=== PATIENT | male | born 1960 | race African-American/Black ===

== ENCOUNTER 2025-04-19 18:14 | Inpatient (IN) | payer OTHER ==
[2025-04-19 18:37] VITALS: BMI 20.7
[2025-04-19] MEDS ORDERED: LOPERAMIDE HCL 2 MG CAPSULE PO PRN (20:05)
[2025-04-19] MEDS ORDERED: MAGNESIUM HYDROX 2400MG/30ML ORAL SUSPENSION 30 ML CUP PO PRN (20:05)
[2025-04-19] MEDS ORDERED: BISMUTH SUBSALICYLATE 524 MG/30 ML PO PRN (20:05)
[2025-04-19] MEDS ORDERED: MAG HYDROX/AL HYDROX/SIMETH 30 ML UNIT-DOSE CUP PO PRN (20:05)
[2025-04-19] MEDS ORDERED: ACETAMINOPHEN 325 MG TABLET (FP) PO PRN (20:05)
[2025-04-19] MEDS ORDERED: NICOTINE POLACRILEX 4 MG GUM BUC PRN (20:05)
[2025-04-19] MEDS ORDERED: guaiFENesin 600 MG TABLET.ER (FP) PO PRN (20:05)
[2025-04-19] MEDS ORDERED: IBUPROFEN 400 MG TABLET (FP) PO PRN (20:05)
[2025-04-19] MEDS ORDERED: ONDANSETRON *ODT* 4 MG TABLET SL PRN (20:05)
[2025-04-19] MEDS ORDERED: NALOXONE (NARCAN) HCL 4 MG/0.1 ML SPRAY NS PRN (20:05)
[2025-04-19] MEDS ORDERED: BENZOCAINE/MENTHOL (CHLORASEPTIC ) LOZENGE MM PRN (20:05)
[2025-04-19] MEDS ORDERED: BENZONATATE 200 MG CAPSULE PO PRN (20:05)
[2025-04-19] MEDS ORDERED: DICYCLOMINE HCL 10 MG CAPSULE PO PRN (20:05)
[2025-04-19] MEDS ORDERED: chlordiazePOXIDE HCL 25 MG CAPSULE PO PRN (20:05)
[2025-04-19] MEDS: THIAMINE 100 MG TABLET PO SCH (22:24)
[2025-04-19] MEDS: MELATONIN 5 MG TABLETS PO SCH (22:24)
[2025-04-19] MEDS: levETIRAcetam 500 MG TABLET (FP) PO SCH (22:24)
[2025-04-19] MEDS: chlordiazePOXIDE HCL 25 MG CAPSULE PO SCH (22:24)
[2025-04-19] MEDS: IBUPROFEN 600 MG TABLET (FP) PO PRN (22:26)
[2025-04-20] MEDS: PRENATAL VITAMINS W/ FOLIC ACID TABLET (FP) PO SCH (10:06)
[2025-04-20] MEDS: NICOTINE 14 MG/24 HOURS TOPICAL PATCH TD SCH (10:07)
[2025-04-20] MEDS: LISINOPRIL 5 MG TABLET PO SCH (10:08)
[2025-04-20 11:01] LABS: CHLORIDE 108 mmol/L (98-107); POTASSIUM 3.5 mmol/L (3.5-5.1); SODIUM 144 mmol/L (136-145)
[2025-04-20 11:03] LABS: HEMATOCRIT 32.5 % (40.1-51.0); HEMOGLOBIN 10.8 g/dL (13.7-17.5); MCHC 33.2 g/dl (32.3-36.5); MEAN CELL VOLUME 110.2 fl (79.0-92.2); MEAN PLT VOLUME 10.9 fl (9.4-12.4); PLATELET COUNT 178 x10^3/uL (163-337)
[2025-04-20 11:04] LABS: ALBUMIN 3.4 g/dl (3.4-5.0); ANION GAP 5 mmol/L (4-13); CO2 30 mmol/L (21-32)
[2025-04-20 11:06] LABS: CALCIUM 9.7 mg/dL (8.5-10.1)
[2025-04-20 11:07] LABS: BLOOD UREA NITROGEN 14.6 mg/dL (7-18)
[2025-04-20 11:10] LABS: CREATININE 0.8 mg/dL (0.55-1.3); SGOT/AST 46 U/L (15-37); SGPT/ALT 29 U/L (13-61)
[2025-04-20 11:11] LABS: BILIRUBIN,TOTAL 0.5 mg/dL (0.2-1)
[2025-04-20 11:12] LABS: ALK PHOS 95 U/L (45-117)
[2025-04-20 12:00] LABS: GLUCOSE,RANDOM 123 mg/dL (74-106); TOT PROT 6.4 g/dl (6.4-8.2)
[2025-04-20] MEDS: methaDONE HCL 10 MG TABLET PO ONE (13:51)
[2025-04-20] MEDS: POLYETHYLENE GLYCOL (HEALTHYLAX) 3350 17 GM PACKET PO PRN (17:21)
[2025-04-20] MEDS: SUVOREXANT 10 MG TABLET PO PRN (22:33)
[2025-04-21] MEDS: chlordiazePOXIDE HCL 25 MG CAPSULE PO SCH (05:48)
[2025-04-22] MEDS ORDERED: chlordiazePOXIDE HCL 10 MG CAPSULE PO PRN
[2025-04-22] MEDS: methaDONE HCL 10 MG TABLET PO SCH (05:50)
[2025-04-22] MEDS: chlordiazePOXIDE HCL 10 MG CAPSULE PO SCH (05:50)
[2025-04-22 09:29] VITALS: BP 149/98; PULSE 71; RESP 16; TEMP 98
[2025-04-22] MEDS ORDERED: LISINOPRIL 10 MG TABLET PO SCH (10:00)
[2025-04-23] MEDS ORDERED: chlordiazePOXIDE HCL 10 MG CAPSULE PO SCH (05:00)
[2025-04-24] MEDS ORDERED: chlordiazePOXIDE HCL 10 MG CAPSULE PO ONE (05:00)
== END 2025-04-22 09:44 | disposition home or self-care (01) | DRG 897 ==
LOC: YASAS 18:14 → Y3N 21:43
PROVIDERS: ADMIT Allergy & Immunology; ATTEND Allergy & Immunology
PROC: HZ2ZZZZ Detoxification Services for Substance Abuse Treatment (ICD-10-PCS; principal; 2025-04-19)
DX: F10.230 Alcohol dependence with withdrawal, uncomplicated (principal); F11.20 Opioid dependence, uncomplicated; F17.210 Nicotine dependence, cigarettes, uncomplicated; F19.24 Other psychoactive substance dependence with psychoactive substance-induced mood disorder; G47.00 Insomnia, unspecified; I10 Essential (primary) hypertension
CPT/HCPCS: 36415; 80053; 80307; 85027; 86780; 93005; 93010